=== PATIENT | female | born 1965 | race Caucasian/White ===

== ENCOUNTER 2022-10-16 11:10 | Emergency (ER) | payer BC, SELFPAY ==
--- NOTE | ~2022-10-16 | CT_ITS ---
EXAMINATION: CT abdomen pelvis w con DATE: 10/16/2022 16:53 INDICATION: Right lower quadrant abdominal pain TECHNIQUE: Computed tomography (CT) of the abdomen and pelvis was performed with 100 mL Omnipaque-350 intravenous contrast. Automated exposure control and iterative reconstruction technique were employe d. The dose-length product was 308.56 mGy-cm. COMPARISON: None FINDINGS: Mild dependent atelectasis in bilateral lower lobes. Heart size is normal. No pericardial or pleural effusion. Bilateral breast implants. Liver, gallbladder, spleen, pancreas, right adrenal gland and bi lateral kidneys are normal. 1.3 cm left adrenal nodule which is only increased slightly in size over the six-year interval which could be most consistent with an adenoma. Bladder is normal. The uterus a nd left adnexa are not identified and have likely been surgically resected. Right ovary is unremarkab le. There is mild colonic diverticulosis with a sigmoid and descending colon predominance but without adjacent inflammatory change to suggest diverticulitis. No bowel obstruction. The appendix is not vi sualized. No pericecal inflammatory change to suggest acute appendicitis. No free intraperitoneal gas or fluid. No pathologically enlarged abdominal or pelvic lymphadenopathy. Moderate lumbar spondylosi s. IMPRESSION: 1. No acute intra-abdominal/pelvic process. Reviewed, dictated and finalized at location B. CONDITIONER
[2022-10-16 11:30] VITALS: BP 117/77; PULSE 93; RESP 16; TEMP 36.9; O2SAT 96
[2022-10-16 11:45] LABS: Basophils Percent Auto 0.4 % (0.2-1.2); Eosinophils Absolute Auto 0.2 K/mm3 (0-0.3); Eosinophils Percent Auto 2.1 % (0-4.4); Hematocrit 39.2 % (37.0-47.0); Hemoglobin 13.1 g/dL (12.0-15.0); Immature Granulocyte Absolute 0.02 K/mm3 (0.00-0.031); Immature Granulocyte Percent A 0.3 % (0-0.5); Lymphocytes Absolute Auto 2.38 K/mm3 (0.9-3.2); Lymphocytes Percent Auto 32.8 % (18.3-44.2); Mean Corpuscular HGB Conc 33.4 g/dl (32-36); Mean Corpuscular Hemoglobin 31.9 pg (26-34); Mean Corpuscular Volume 95.4 fl (80-100); Mean Platelet Volume 9.6 fl (7.4-10.4); Monocytes Absolute Auto 0.3 K/mm3 (0.1-0.6); Monocytes Percent Auto 3.6 % (2.6-8.5); Neutrophils Absolute Auto 4.4 K/mm3 (1.3-6.7); Neutrophils Percent Auto 60.8 % (45.5-73.1); Platelet Count Result 246 k/mm3 (150-375); Red Blood Count 4.11 M/mm3 (4.2-5.4); White Blood Count 7.3 K/mm3 (4.5-10.0)
[2022-10-16 11:58] LABS: Alanine Aminotransferase 20 U/L (6-35); Albumin Level 4.6 g/dL (3.5-5.1); Alkaline Phosphatase 90 U/L (38-126); Anion Gap 5 mmol/L (8-16); Aspartate Amino Transferase 22 U/L (14-36); Bilirubin,Total 0.6 mg/dL (0.2-1.3); Blood Urea Nitrogen 15 mg/dL (7-17); Calcium 9.5 mg/dL (8.4-10.2); Carbon Dioxide 29 mmol/L (22-30); Chloride 102 mmol/L (98-107); Estimated CRCL calculation 76 ml/min; Estimated Glomerular Filt Rate > 60; Glucose 90 mg/dL (65-110); Lipase 44 U/L (23-300); Potassium 3.9 mmol/L (3.4-5.0); Sodium 136 mmol/L (137-145)
[2022-10-16 12:03] LABS: Appearance Urine Clear (Clear); Bilirubin Urine Negative (Negative); Blood Urine Negative (Negative); Color Urine Yellow (Yellow); Glucose Urine UA Negative (Negative); Ketones Urine Negative (Negative); Leukocyte Esterase Ur Negative LEU/UL (Negative); Nitrate Urine Negative (Negative); Protein Urine Negative (Negative); Urobilinogen Urine 0.2 mg/dL (<2.0)
[2022-10-16 12:05] LABS: Add Urine Microscopic? NO
[2022-10-16 14:52] VITALS: O2SAT 100
--- NOTE | 2022-10-16 17:20 | ED.GENADULT ---
HPI - General Adult General Chief complaint: Back Pain/Injury Stated complaint: flank pain Time Seen by Provider: 10/16/22 14:50 History of Present Illness HPI narrative: Patient is a 56-year-old female who presents ER with low back pain and abdominal pain. Low back pain is achy and radiates across both sides of her low back. No trauma or injury or fall. No lower extremity numbness or tingling. Reports last week she did have some diarrhea but is since abated. No blood in her stool. Denies urinary frequency urgency or. No history of kidney stones. Related Data Allergies Allergy/AdvReac Type Severity Reaction Status Date / Time morphine Allergy Mild Itching Verified 10/16/22 14:56 Review of Systems Review of Systems: All systems reviewed & are unremarkable except as noted in HPI and below Constitutional: Constitutional: Denies chills, Denies fatigue and Denies fever(s) ENT: Denies nasal congestion and Denies sore throat Cardiovascular: Cardiovascular: Denies chest pain, Denies rapid heart rate and Denies radiating jaw, neck or arm pain Respiratory: Respiratory: Denies cough and Denies dyspnea Gastrointestinal: Gastrointestinal: Reports abdominal pain, Reports diarrhea, Denies nausea and Denies vomiting Musculoskeletal: Musculoskeletal: Reports back pain Neurologic: Denies focal weakness and Denies numbness PMFSH Past Medical History Medical History (Updated 10/16/22 @ 17:33 by Jah Peña MD) Healthy female adult Surgical History Surgical History (Updated 10/16/22 @ 17:33 by Jah Peña MD) History of appendectomy History of section History of laparoscopy Social History Social History (Updated 10/16/22 @ 17:33 by Jah Peña MD) Smoking status: Current every day smoker Exam Narrative: GENERAL: Well-appearing, well-nourished, and in no acute distress. HEAD: Normocephalic, atraumatic. EYES: PERRL and EOMI. ENT: Mucous membranes moist. CHEST: Clear to auscultation. No respiratory distress. HEART: Regular rate and rhythm. Normal peripheral pulses. ABDOMEN: Soft, tender palpation right lower quadrant with guarding, nondistended, normal active bowel sounds. Back: No reproducible midline impression muscular tenderness. No visual evidence of trauma. EXTREMITIES: Normal range of motion. No edema. SKIN: Warm, dry, no rash. NEURO: Alert and oriented x3. PSYCH: Normal mood and affect. Course Course Emergency Course: Patient resting comfortably. Informed of results. No evidence of acute intra-abdominal process. Repeat abdominal exam without any point tenderness. Back pain low and not reproducible. No neurologic deficit. Recommend anti-inflammatories and antiemetics. Follow-up with PCP. Vital Signs Vital signs: Vital Signs Temperature 98.5 F 10/16/22 11:30 Pulse Rate 93 10/16/22 11:30 Respiratory Rate 16 10/16/22 11:30 Blood Pressure 117/77 10/16/22 11:30 Pulse Oximetry 96 10/16/22 11:30 Oxygen Delivery Room Air 10/16/22 11:30 Temperature 98.5 F 10/16/22 11:30 Pulse Rate 93 10/16/22 11:30 Respiratory Rate 16 10/16/22 11:30 Blood Pressure 117/77 10/16/22 11:30 Pulse Oximetry 100 10/16/22 14:52 Oxygen Delivery Room Air 10/16/22 14:52 Medical Decision Making Vital Signs Vital Signs: Vital Signs Temperature 98.5 F 10/16/22 11:30 Pulse Rate 93 10/16/22 11:30 Respiratory Rate 16 10/16/22 11:30 Blood Pressure 117/77 10/16/22 11:30 Pulse Oximetry 96 10/16/22 11:30 Oxygen Delivery Room Air 10/16/22 11:30 Temperature 98.5 F 10/16/22 11:30 Pulse Rate 93 10/16/22 11:30 Respiratory Rate 16 10/16/22 11:30 Blood Pressure 117/77 10/16/22 11:30 Pulse Oximetry 100 10/16/22 14:52 Oxygen Delivery Room Air 10/16/22 14:52 Lab Data 10/16/22 11:37 10/16/22 11:37 Labs: Lab Results 10/16/22 10/16/22 10/16/22 Range/Units 11:37 11:37 11:46 WBC
[2022-10-16] MEDS: fentaNYL CITRATE INJ (*CRX) 100 MCG/2 ML VIAL 50 MCG IV PUSH (17:43)
== END 2022-10-16 17:00 | disposition home or self-care (01) ==
PROVIDERS: Emergency Provider Emergency Medicine; PCP Physician Assistant
DX: M54.50 Low back pain, unspecified (principal); R10.31 Right lower quadrant pain; F17.200 Nicotine dependence, unspecified, uncomplicated
CPT/HCPCS: 36415; 74177; 80053; 81003; 81025; 83690; 85025; 96374; 99284; J3010; Q9967

== ENCOUNTER 2022-11-16 15:45 | Outpatient (CLI) | payer BC, SELFPAY ==
--- NOTE | ~2022-11-16 | MM_ITS ---
EXAMINATION: MM scrn hawk implant BI w john HISTORY: Screening mammogram TECHNIQUE: Craniocaudal and mediolateral oblique 3-D tomosynthesis images with implant displacement a nd synthetic 2-D images were generated. Craniocaudal and mediolateral oblique views of the breasts wi thout implant displacement were obtained using full field digital mammography. CAD analysis was submi tted and interpreted. COMPARISON: 06/24/2014 bilateral implant screening mammogram BREAST PARENCHYMAL COMPOSITION: The breasts are extremely dense, which lowers the sensitivity of mamm ography. FINDINGS: Status post bilateral augmentation mammoplasty. There is no evidence of suspicious mass, ca lcification, or architectural distortion to suggest malignancy in either breast. There has been no frank spicious interval change. IMPRESSION: 1. No mammographic evidence of malignancy. 2. Recommend routine screening mammography in one year. BI-RADS Category 1: Negative Reviewed, dictated and finalized at location A. 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
== END 2022-11-16 15:46 | disposition home or self-care (01) ==
PROVIDERS: PCP Physician Assistant; Visit Provider Physician Assistant
DX: Z12.31 Encounter for screening mammogram for malignant neoplasm of breast (principal)
CPT/HCPCS: 77063; 77067

== ENCOUNTER 2022-12-08 01:22 | Day surgery (SDC) | payer BC, SELFPAY ==
[2022-12-05 15:00] VITALS: BMI 24.3
[2022-12-08 09:13] VITALS: BP 107/80; PULSE 86; RESP 18; TEMP 36.7; O2SAT 96
[2022-12-08] MEDS: LACTATED RINGERS 1,000 ML 150 ML IV CONT (09:15)
--- NOTE | 2022-12-08 09:17 | WPDANESEPPF ---
Anes - Initial Pre Proc Eval Procedure: Operation Date: 12/08/22 10:15 Proposed Procedures p Screening Colonoscopy - David Connelly MD Date/Time: 12/08/22 09:17 Surgeon: David Connelly MD Pre Op Diagnosis: neoplasm screening Patient Data Age: 56 Gender: F Height: 1.7 m Weight: 68.2 kg Last Vital Signs Temp 36.7 C 12/08/22 09:13 Pulse 86 12/08/22 09:13 Resp 18 12/08/22 09:13 BP 107/80 12/08/22 09:13 Pulse Ox 96 12/08/22 09:13 O2 Del Method Room Air 12/08/22 09:13 Allergies Allergy/AdvReac Type Severity Reaction Status Date / Time morphine Allergy Mild Itching Verified 12/08/22 09:12 iohexol Allergy Rash Verified 12/08/22 09:12 [From contrast - CT, X-RAY] Home Medications Medication Instructions Recorded Confirmed Type magnesium L-threonate 3 cap PO DAILY 12/05/22 12/08/22 History magnesium citrate 300 mg PO DAILY 12/05/22 12/08/22 History Patient hx anesthesia problems: none Family hx anesthesia problems: none Results Review: All pre-operative results and documents have been reviewed as part of the pre-operative evaluation. [facility] Past Medical History Medical History Healthy female adult Surgical History Surgical History History of appendectomy History of section History of laparoscopy Social History Social History Smoking packs per day: 1 Smoking cigarettes per day: 20.0 Years smoked: 35 Smoking pack-years: 35.00 Smoking status: Former smoker Tobacco type: e-cigarettes/vaping Additional smoking assessment comments: CURRENTLY VAPES Alcohol intake: current Substance use: never Substance use type: does not use Living arrangements: with family Spiritual care concerns: No Anes - Eval Final PreProcedure Day of Procedure 12/08/22 09:17 Patient weight: normal Heart: regular rate and rhythm Lungs: clear to auscultation Airway: Mallampati scale class II Neurological: alert and oriented Last oral intake: >/= 8 hours ASA classification: II Emergent: no Anesthetic plan: proceed Anesthesia type and monitoring: general GIVS and standard monitoring Results Review: All pre-operative results and documents have been reviewed as part of the pre-operative evaluation. Informed Consent: The patient's anesthetic plan and its attendant risks and benefits were discussed with the patient/family/POA. Questions were solicited and answers provided to the satisfaction of the patient/family/POA.
--- NOTE | 2022-12-08 09:36 | PM.HPGS ---
History of Present Illness History of Present Illness Consent: Risks, benefits, and alternatives have been discussed and questions answered. Patient agrees to proceed with procedure. Chief complaint: neoplasm screening Narrative: Aiyana Solomon is a 56 year old female here for first screening colonoscopy Review of Systems Constitutional: Constitutional: Denies headache(s) and Denies weakness Eyes: Eyes: Denies blurry vision ENT: Reports Normal hearing present, Denies headache(s) and Denies neck pain Cardiovascular: Cardiovascular: Denies chest pain and Denies dyspnea Respiratory: Respiratory: Denies dyspnea Gastrointestinal: Gastrointestinal: Reports no additional gastrointestinal complaints Genitourinary: Genitourinary: Denies dysuria Musculoskeletal: Musculoskeletal: Denies neck pain Integumentary/Breasts: Skin/Breast: Denies dry skin Neurologic: Reports Normal hearing present, Denies headache(s) and Denies weakness Psychiatric: Psychiatric: Denies anxiety Endocrine: Endocrine: Denies change in body appearance Hematologic/Lymphatic: Hematologic/Lymphatic: Denies easy bleeding Allergic/Immunologic: Allergic/Immunologic: Denies urticaria PMF Past Medical History Medical History (Updated 12/08/22 @ 09:37 by David Connelly MD) Colon cancer screening Healthy female adult Surgical History Surgical History History of appendectomy History of section History of laparoscopy Social History Social History Smoking packs per day: 1 Smoking cigarettes per day: 20.0 Years smoked: 35 Smoking pack-years: 35.00 Smoking status: Former smoker Tobacco type: e-cigarettes/vaping Additional smoking assessment comments: CURRENTLY VAPES Alcohol intake: current Substance use: never Substance use type: does not use Living arrangements: with family Spiritual care concerns: No Meds Home Medications and Allergies Home Medications Medication Instructions Recorded Confirmed Type magnesium L-threonate 3 cap PO DAILY 12/05/22 12/08/22 History magnesium citrate 300 mg PO DAILY 12/05/22 12/08/22 History Allergies Allergy/AdvReac Type Severity Reaction Status Date / Time morphine Allergy Mild Itching Verified 12/08/22 09:12 iohexol Allergy Rash Verified 12/08/22 09:12 [From contrast - CT, X-RAY] Vital Signs Vital Signs - 24 hr 12/08/22 09:13 Temperature 98.1 F Pulse Rate 86 Respiratory Rate 18 Blood Pressure 107/80 Pulse Oximetry 96 Oxygen Delivery Room Air Exam Const: General: comfortable and no acute distress HENMT: Face/Nose/Sinus: Normal nares present Eyes: General: appearance normal, both eyes and all related structures Neck: Neck: no JVD Resp: Auscultation: clear to auscultation bilaterally Cardio: Rate: regular rate Rhythm: regular rhythm GI: Inspection: non-distended GI Palp: Yes Soft to palpation Skin: General skin exam: normal color Neuro: General: gait normal Speech: normal speech Extrem: General: normal to inspection Psych: Mental Status: mental status grossly normal Assessment and Plan Assessment and plan (1) Colon cancer screening: Code(s): Z12.11 - Encounter for screening for malignant neoplasm of colon Status: Acute Assessment and Plan: colonoscopy
[2022-12-08 10:02] VITALS: BP 116/77; PULSE 77; RESP 23; O2SAT 98
[2022-12-08 10:12] VITALS: BP 113/75; PULSE 64; RESP 17; O2SAT 97
[2022-12-08 10:22] VITALS: BP 109/72; PULSE 63; RESP 18; O2SAT 98
== END 2022-12-08 10:24 | disposition home or self-care (01) ==
PROVIDERS: PCP Physician Assistant; Visit Provider Internal Medicine Gastroenterology
PROC: 0DJD8ZZ Inspection of Lower Intestinal Tract, Via Natural or Artificial Opening Endoscopic (ICD-10-PCS; CPT 45378; principal; 2022-12-08 10:15)
DX: Z12.11 Encounter for screening for malignant neoplasm of colon (principal); D12.0 Benign neoplasm of cecum; K62.1 Rectal polyp; K57.30 Diverticulosis of large intestine without perforation or abscess without bleeding; K64.8 Other hemorrhoids; F17.290 Nicotine dependence, other tobacco product, uncomplicated
CPT/HCPCS: 45385; 88305; J2704; J7120

== ENCOUNTER 2023-03-06 18:42 | Emergency (ER) | payer BC, SELFPAY ==
[2023-03-06 18:52] VITALS: BP 104/73; PULSE 93; RESP 18; TEMP 36.1; O2SAT 99
[2023-03-06 19:45] LABS: Alanine Aminotransferase 28 U/L (6-35); Albumin Level 5.4 g/dL (3.5-5.1); Alkaline Phosphatase 124 U/L (38-126); Anion Gap 12 mmol/L (8-16); Aspartate Amino Transferase 32 U/L (14-36); Bilirubin,Total 0.7 mg/dL (0.2-1.3); Blood Urea Nitrogen 16 mg/dL (7-17); Calcium 10.4 mg/dL (8.4-10.2); Carbon Dioxide 25 mmol/L (22-30); Chloride 102 mmol/L (98-107); Estimated CRCL calculation 83 ml/min; Estimated Glomerular Filt Rate > 60; Glucose 127 mg/dL (65-110); Lipase 68 U/L (23-300); Potassium 3.4 mmol/L (3.4-5.0); Sodium 139 mmol/L (137-145)
[2023-03-06 21:23] LABS: Basophils Percent Auto 0.4 % (0.2-1.2); Eosinophils Absolute Auto 0.1 K/mm3 (0-0.3); Eosinophils Percent Auto 0.6 % (0-4.4); Hematocrit 40.2 % (37.0-47.0); Hemoglobin 13.7 g/dL (12.0-15.0); Immature Granulocyte Absolute 0.02 K/mm3 (0.00-0.031); Immature Granulocyte Percent A 0.2 % (0-0.5); Lymphocytes Absolute Auto 0.33 K/mm3 (0.9-3.2); Lymphocytes Percent Auto 3.7 % (18.3-44.2); Mean Corpuscular HGB Conc 34.1 g/dl (32-36); Mean Corpuscular Hemoglobin 31.4 pg (26-34); Mean Platelet Volume 9.9 fl (7.4-10.4); Monocytes Absolute Auto 0.5 K/mm3 (0.1-0.6); Monocytes Percent Auto 5.9 % (2.6-8.5); Neutrophils Percent Auto 89.2 % (45.5-73.1); Platelet Count Result 210 k/mm3 (150-375); Red Blood Count 4.37 M/mm3 (4.2-5.4); Red Cell Distribution Width 13.2 % (11.5-14.5)
--- NOTE | 2023-03-06 21:27 | PC.NURSE ---
Pt c/o diffuse abdominal pain, nausea, vomiting, diarrhea, neck pain, and headache after she took her first dose of amoxicillin for a sinus infection tonight. EMS administered 4mg zofran en route.
[2023-03-06 21:34] LABS: Appearance Urine Cloudy (Clear); Bacteria Urine None Seen /hpf; Bilirubin Urine 2+ (Negative); Blood Urine Negative (Negative); Color Urine Dark Yellow (Yellow); Glucose Urine UA Negative (Negative); Ketones Urine 2+ mg/dL (Negative); Leukocyte Esterase Ur Trace LEU/UL (Negative); Mucus Urine Present /lpf; Need Manual Microscopic Reviewed; Nitrate Urine Negative (Negative); Protein Urine 2+ mg/dL (Negative); RBC Urine 0-2 /hpf (0-2); Specific Grav Ur 1.026 (1.001-1.035); Squamous Epithelial Cell Urine Occasional /hpf (Few); WBC Urine 0-5 /hpf; pH Urine 5.5 (5.0-9.0)
[2023-03-06 21:35] LABS: Add Urine Microscopic? YES
[2023-03-06] MEDS: SODIUM CHLORIDE 0.9% IV 1,000 ML 999 ML IV CONT (21:55)
[2023-03-06] MEDS: PROCHLORPERAZINE EDISYLATE 10 MG/2 ML VIAL IV PUSH (21:56)
[2023-03-06 22:48] VITALS: BP 113/76; PULSE 100; RESP 20; O2SAT 96
--- NOTE | 2023-03-06 23:10 | ED.GENADULT ---
HPI - General Adult General Chief complaint: Nausea/Vomiting/Diarrhea Stated complaint: N/V after taking Amoxil Time Seen by Provider: 03/06/23 21:06 History of Present Illness HPI narrative: Patient is a 57-year-old female who presents emergency department chief complaint of nausea vomiting patient reports that she started Augmentin and reports that she started having nausea and vomiting was able to keep p.o. fluids down. Related Data Home Medications Medication Instructions Recorded Confirmed magnesium L-threonate 3 cap PO DAILY 12/05/22 12/08/22 magnesium citrate 300 mg PO DAILY 12/05/22 12/08/22 Allergies Allergy/AdvReac Type Severity Reaction Status Date / Time morphine Allergy Mild Itching Verified 12/08/22 09:12 iohexol Allergy Rash Verified 12/08/22 09:12 [From contrast - CT, X-RAY] Review of Systems Review of Systems: A 10 system review of systems was completed on the patient and is negative except for what is stated in the HPI. Nursing and ancillary documentation was reviewed. [facility] Past Medical History Medical History Colon cancer screening Healthy female adult Surgical History Surgical History History of appendectomy History of section History of laparoscopy Social History Social History Smoking packs per day: 1 Smoking cigarettes per day: 20.0 Years smoked: 35 Smoking pack-years: 35.00 Smoking status: Former smoker Tobacco type: e-cigarettes/vaping Additional smoking assessment comments: CURRENTLY VAPES Alcohol intake: current Substance use: never Substance use type: does not use Living arrangements: with family Spiritual care concerns: No Exam Narrative: GENERAL: Well-appearing, well-nourished, and in no acute distress. HEAD: Normocephalic, atraumatic. EYES: PERRLA and EOMI. ENT: Nares clear, no rhinorrhea or epistaxis. Mucous membranes moist. NECK: Supple. CHEST: Clear to auscultation. No respiratory distress. HEART: Regular rate and rhythm. No murmur heard. Normal peripheral pulses. ABDOMEN: Soft, nontender, nondistended, normal active bowel sounds. EXTREMITIES: Normal range of motion. No edema. SKIN: Warm, dry, no rash. NEURO: No focal deficits. Alert and oriented x3. PSYCH: Normal mood and affect. Course Vital Signs Vital signs: Vital Signs Temperature 36.1 C L 03/06/23 18:52 Pulse Rate 93 03/06/23 18:52 Respiratory Rate 18 03/06/23 18:52 Blood Pressure 104/73 03/06/23 18:52 Pulse Oximetry 99 03/06/23 18:52 Oxygen Delivery Room Air 03/06/23 18:52 Temperature 36.1 C L 03/06/23 18:52 Pulse Rate 100 03/06/23 22:48 Respiratory Rate 20 03/06/23 22:48 Blood Pressure 113/76 03/06/23 22:48 Pulse Oximetry 96 03/06/23 22:48 Oxygen Delivery Room Air 03/06/23 18:52 Medical Decision Making MDM Narrative Medical decision making narrative: Differential diagnosis includes dehydration, medication side effect, Laboratory studies are within normal limits CBC was normal electrolytes showed a creatinine of 0.6 liver enzymes within normal limits lipase was normal at 68 urinalysis showed 2+ ketones and trace leukocyte esterase. Patient was hydrated and given antiemetics in the emergency department Was likely secondary to an sensitivity to Augmentin plan will most likely to change the patient's antibiotics Vital Signs Vital Signs: Vital Signs Temperature 36.1 C L 03/06/23 18:52 Pulse Rate 93 03/06/23 18:52 Respiratory Rate 18 03/06/23 18:52 Blood Pressure 104/73 03/06/23 18:52 Pulse Oximetry 99 03/06/23 18:52 Oxygen Delivery Room Air 03/06/23 18:52 Temperature 36.1 C L 03/06/23 18:52 Pulse Rate 100 03/06/23 22:48 Respiratory Rate 20 03/06/23 22:48 Blood Pressure 113/7
== END 2023-03-07 01:25 | disposition home or self-care (01) ==
PROVIDERS: Emergency Medicine; Emergency Provider Emergency Medicine; PCP Physician Assistant
DX: R11.2 Nausea with vomiting, unspecified (principal); J32.9 Chronic sinusitis, unspecified; F17.290 Nicotine dependence, other tobacco product, uncomplicated
CPT/HCPCS: 36415; 80053; 81001; 83690; 85025; 96361; 96374; 99284; J0780; J7030

== ENCOUNTER 2024-01-10 08:14 | Emergency (ER) | payer BC, SELFPAY ==
[2024-01-10 08:39] VITALS: BP 96/76; PULSE 82; RESP 16; TEMP 37.1; O2SAT 99
--- NOTE | 2024-01-10 08:40 | ED.EYEPROB ---
HPI - Eye Problem General Chief complaint: Eye Problems Stated complaint: Swollen Eyes Source: patient, RN notes reviewed and old records reviewed Mode of arrival: ambulatory Limitations: no limitations History of Present Illness HPI Narrative: 58-year-old female presents to [facility] with complaints bilateral eye redness, swelling, drainage, a.m. adding that started yesterday. Patient states got I Last extensions placed 2 days ago denies began turning red woke up today with eyes matted shut. Related Data Home Medications Medication Instructions Recorded Confirmed magnesium L-threonate 3 cap PO DAILY 12/05/22 12/08/22 magnesium citrate 300 mg PO DAILY 12/05/22 12/08/22 Allergies Allergy/AdvReac Type Severity Reaction Status Date / Time morphine Allergy Mild Itching Verified 12/08/22 09:12 iohexol Allergy Rash Verified 12/08/22 09:12 [From contrast - CT, X-RAY] Review of Systems Constitutional: Constitutional: Reports no additional constitutional complaints, Denies body ache(s), Denies chills, Denies fatigue, Denies fever(s) and Denies headache(s) Eyes: Eyes: Reports as per HPI, Reports no additional eye complaints, Denies blurry vision, Reports eye discharge, Reports irritation and Reports other ( Bilateral eye swelling) ENT: Reports system reviewed and no additional complaints, except as documented, Denies vertigo, Denies dizziness, Denies ear discharge, Denies otalgia, Denies facial pain, Denies headache(s), Denies nasal congestion, Denies nasal discharge, Denies sinus pain, Denies sinus pressure and Denies sore throat Cardiovascular: Cardiovascular: Reports no additional cardiovascular complaints, Denies chest pain, Denies chest pain at rest, Denies rapid heart rate and Denies dyspnea Respiratory: Respiratory: Reports no additional respiratory complaints, Denies chest congestion, Denies cough, Denies pain on inspiration, Denies pain with cough and Denies dyspnea Gastrointestinal: Gastrointestinal: Denies abdominal pain, Denies diarrhea, Denies nausea and Denies vomiting Integumentary/Breasts: Skin/Breast: Denies rash Neurologic: Reports system reviewed and no additional complaints, except as documented, Denies vertigo, Denies dizziness and Denies headache(s) Endocrine: Endocrine: Denies fatigue PMFSH Past Medical History Medical History Colon cancer screening Healthy female adult Surgical History Surgical History History of appendectomy History of section History of laparoscopy Social History Social History Smoking packs per day: 1 Smoking cigarettes per day: 20.0 Years smoked: 35 Smoking pack-years: 35.00 Smoking status: Former smoker Tobacco type: e-cigarettes/vaping Additional smoking assessment comments: CURRENTLY VAPES Alcohol intake: current Substance use: never Substance use type: does not use Living arrangements: with family Spiritual care concerns: No Comments At the time of my signature, I reviewed and agree with the nursing past medical, surgical, social, and family history. There is no relevant family history pertinent to the patient complaint. Exam Const: General: cooperative, healthy appearing, no acute distress and well nourished Nutritional Appearance: well nourished Orientation/consciousness: patient oriented x3 Limitations: no limitations HENMT: Head: normal to inspection and normocephalic Ears: external ears normal Face/Nose/Sinus: normal facial exam Face and sinus: normal facial exam Mouth: Yes Normal oral and palatal mucosa present, Yes oropharynx normal and Yes moist mucous membranes Eyes: Alignment and Position: alignment normal Eyelids: eyelid abnormality right upper eyelid erythema and swelling and left upper eyelid erythema and swelling Conjunctivae: conjuncti
== END 2024-01-10 08:51 | disposition home or self-care (01) ==
PROVIDERS: Emergency Provider Registered Nurse; PCP Physician Assistant
DX: H10.9 Unspecified conjunctivitis (principal); F17.290 Nicotine dependence, other tobacco product, uncomplicated
CPT/HCPCS: 99213; G0463

== ENCOUNTER 2025-01-01 09:39 | Outpatient (CLI) | payer BC, SELFPAY ==
--- NOTE | ~2025-01-01 | MM_ITS ---
EXAMINATION: MM scrn hawk implant BI w john HISTORY: Screening mammogram TECHNIQUE: Craniocaudal and mediolateral oblique 3-D tomosynthesis images with implant displacement a nd synthetic 2-D images were generated. Craniocaudal and mediolateral oblique views of the breasts wi thout implant displacement were obtained using full field digital mammography. CAD analysis was submi tted and interpreted. COMPARISON: Comparison to multiple prior studies sequentially, with oldest reviewed study dated 09/2013. BREAST PARENCHYMAL COMPOSITION: Dense: The breasts are extremely dense, which lowers the sensitivity of mammography. FINDINGS: There are subglandular breast implants. There is no evidence of suspicious mass, calcificat ion, or architectural distortion to suggest malignancy in either breast. There has been no suspicious interval change. IMPRESSION: 1. No mammographic evidence of malignancy. 2. Recommend routine screening mammography in one year. BI-RADS Category 1: Negative Reviewed, dictated and finalized at location A.
--- OUTSIDE RECORDS SUMMARY | 2025-01-01 10:08 | XMS_ITS | Data Portability ---
Author Organization [facility] Address [address] [place] [address] Care Team Providers Care Certified Peer Specialist Name Role Phone CLAIRE FERNANDEZ Primary Care Provider Unavailab le Assessment Encounter Date Assessment Date Assessment LastModified by Organization Details LastModified Time 04/23/2024 04/23/2024 I think most of this is inflammatory reaction she can use some Benadryl as needed for any itching I will give her some doxycycline 100 b.i.d. x1 week on the outside chance that she has a little bit of bacterial superinfection she will report back in a couple of days if she is not improving. [email or web address] Not available 04/25/2024 23:37:21 Plan of Treatment Reminders Order Date Submit Date Provider Last Modified By Organization Details Last Modified Time Details Appointments None recorded. Lab TSH + free T4, serum 2023 [facility], [address], [place], [address], 5 14:12:00 lipid panel, serum 2023 024 [facility], [address], [place], [address], 5 14:12:05 CMP, serum or plasma 2023 024 [facility], [address], [place], [address], 5 14:12:24 CBC w/ auto diff 2023 024 [facility], [address], [place], [address], 5 14:12:18 HbA1c (hemoglobin A1c), blood 2023 [place] [address] [facility], [address], [place], [address], 5 14:12:13 Referral None recorded. Procedures None recorded. Surgeries None recorded. Imaging MAMMO, screening, digital, bilateral [address] (Mammography) , [address], [place], [address], 5 15:16:41 Medication Orders doxycycline hyclate 100 mg capsule 2023 [facility] [address] [place], [address], 4 13:04:42 Patient TargetsNo targets recorded. Patient InstructionsNo instructions recorded. Reason for Referral None Reported. Results Created Date Observation Date Name Description Value Unit Range Abnormal Flag Note LastModifiedBy Organization Detail LastModifiedTime Result Notes None recorded. Problems Name Problem SNOMED Code Status Onset Date Resolution Date Notes Provider Name and Address Organization Details Recorded Time Bite of insect Active 024 Avi Lopez MA [facility], [place] - [place] 4 13:01:13 Anxiety 43585866 Active 024 BENJAMÍN Willingham Attn: Accounting ,[address] [place], [address] , [place] - [place] 4 15:14:02 Body mass index 20-24 - normal 520173493 Active 024 BENJAMÍN Willingham Attn: Accounting ,[address] [place], [address] , [facility] - [facility] 4 15:14:38 Problem Notes None recorded. Medical Equipment None Reported. Allergies Allergen ID Allergen Name Allergen Category Reaction Reaction Severity Criticality Documentation Date Start Date Code Code System Note Provider Name and Address Organization Details Recorded Time 225598 morphine medicatio n itching moderate low 04/23/2024 7052 RxNorm Not Available Not Available Not Available 726909 latex environme nt,medica tion itching Not available Not available 05/01/2024 42070 91 RxNorm redne ss Not Available Not Available Not Available Medications Name Sig Start Date Stop Date Status Note LastModified by Organization Details LastModified Time amoxicillin 500 mg capsule TAKE FOUR CAPSULES BY MOUTH ONE HOUR BEFORE APPOINTME NT 04/23 completed Not Available Not Available Not Available doxycycline hyclate 100 mg capsule Take 1 capsule twice a day by oral route for 7 days. 05/01 completed Not Available Not Available Not Available ofloxacin 0.3 % eye drops 04/23 completed Not Available Not Available Not Available prednisone 20 mg tablet 04/23 completed Not Available Not Available Not Available ciprofloxac in 500 mg tablet TAKE 1 TABLET BY MOUTH EVERY 12 HOURS FOR URINARY INFECTION 12/26 completed Not Available Not Available Not Available oxycodone-a cetaminophe n 5 mg-325 mg tablet TAKE 1 TABLET BY MOUTH EVERY 4 HOURS NEEDED FOR PAIN 04/23 completed Not Available Not Available Not Available amoxicillin 875 mg tablet Take 1 tablet every 12 hours by oral route. 12/26 completed Not Available Not Available Not Available Vitals Date Recorded Body height Body mass index (BMI) Body weight Heart rate Oxygen saturation Oxygen saturation in Arterial blood by Pulse oximetry Systolic blood pressure Diastolic blood pressure Provider Name and Address Organization Details Last Updated DateTime 4 170.18 cm 22.7 kg/m2 27846.1 g 75 /min 98 % 98 % 104 mm[Hg] 66 mm[Hg] Lorrie Jaimes [place] - [facility] 4 12:49:45 Date Recorded Body height Body mass index (BMI) Body weight Respiratory rate Oxygen saturation Oxygen saturation in Arterial blood by Pulse oximetry Heart rate Systolic blood pressure Diastolic blood pressure Provider Name and Address Organization Details Last Updated DateTime 4 170.18 cm 22.7 kg/m2 33007.0 4 g 20 /min 97 % 97 % 80 /min 116 mm[Hg] 82 mm[Hg] ROSA Owens - [place] 13:07:16 Date Recorded Systolic blood pressure Diastolic blood pressure Provider Name and Address Organization Details Last Updated DateTime 05/01/2024 130 mm[Hg] 80 mm[Hg] BENJAMÍN Willingham Attn: Accounting,[address] [facility], [place], [address], [place] - [place] 05/01/2024 13:39:42 Social History Question Answer Notes LastModified by Organizat ion Details LastModified Time Tobacco Smoking Status Former Smoker Lorrie Jaimes [place] null, [place] [facility] 04/23/2024 12:45:10 Do You Have An Advance Directive? No Information not available 04/23/2024 What Is Your Level Of Alcohol Consumption? Occasional Information not available 04/23/2024 Are You Blind Or Do You Have Difficulty Seeing? No Information not available 04/23/2024 What Is Your Level Of Caffeine Consumption? Moderate Information not available 04/23/2024 Are You Deaf Or Do You Have Serious Difficulty Hearing? No Information not available 04/23/2024 Do You Or Have You Ever Used E-cigarettes Or Vape? Current User Of Electronic Cigarettes Information not available 04/23/2024 What Was The Date Of Your Most Recent Tobacco Screening? 05/01/2024 [email or web address] Information not available 05/01/2024 What Is Your Current Pack Years? [email or web address] ars Information not available 04/23/2024 What Is Your Relationship Status? Information not available 04/23/2024 Do You Use Your Seat Belt Or Car Seat Routinely? Yes Information not available 04/23/2024 Do You Have Smoke And Carbon Monoxide Detectors In Your Home? Yes Information not available 04/23/2024 At What Age Did You Start Smoking Tobacco? 31 Information not available 04/23/2024 Do You Or Have You Ever Used Smokeless Tobacco? Former Smokeless Tobacco User Information not available 04/23/2024 How Much Tobacco Do You Smoke? 1 PPD Information not available 04/23/2024 Do You Feel Stressed (tense, Restless, Nervous, Or Anxious, Or Unable To Sleep At Night)? [id number] Information not available 04/23/2024 Do You Use Any Illicit Or Recreational Drugs? No Information not available 04/23/2024 Has Tobacco Cessation Counseling Been Provided? No Information not available 04/23/2024 Do You Or Have You Ever Used Any Other Forms Of Tobacco Or Nicotine? Yes Information not available 04/23/2024 Sex: Female Functional Status Question Answer Note LastModified by Organization D etails LastModified Time Are you able to care for yourself? Yes Information n ot available 04/23/2024 Mental Status None recorded. Family History Nothing Reported. Medical History Condition Response Coronary Artery Disease N Other N High Blood Pressure N Atrial Fibrillation N Kidney or Bladder Problems N Thyroid Problems N GI Problems N Depression N COPD N Blood Clots N Have you had a mammogram in the last yea r? N Skin Problems N Anemia N Heart Attack ([place]) N Anxiety Disorder N Diabetes N Muscle, Joint, or Bone Problems N Seizures/Epilepsy N Have you had a colonoscopy in the last 1 0 years? N Acid Reflux (GERD) N Cancer N Stroke N Asthma N Allergies Y Have you had a PSA blood test in the las t year? N High Cholesterol N Hepatitis N Liver Disease N Headaches N Heart Failure N Osteoporosis N Gynecological History Statement/Question Response Menses Monthly N Current Control Method Other Obstetrics History GPAL:G 0 P 0 0 0 0 Immunizations Vaccine Type Date Status Note Provider Nam e and Address Organization Details Recorded Time COVID-19 vaccine, vector-nr, rS-Ad26, PF, 0.5 mL 12/31/2020 completed ROSA Rivas [facility] 04/23/2024 12:44:12 Past Encounters Encounter ID Performer Location Encounter Start Date Encounter Closed Date Diagnosis/Indication Diagnosis SNOMED-CT Code Diagnosis ICD10 Code Diagnosis Note [id number] Amos Escobar MD [facility] (Adult Med) [address] [place] [address] 04/23/2024 12:34:47 04/23/2024 13:39:20 Bite of insect 560651625 W57.XXXA [id number] BENJAMÍN Willingham [facility] [address] [place] [address] 05/01/2024 12:25:03 05/01/2024 13:50:39 Adult health examination 386965653 Z00.00 Annual wellness exam complete Screening mammography 24 000151 Z12.31 Annual mammogram ordered Cholesterol screening 27 9062913 Z13.220 Routine fasting lipids are due Diabetes m ellitus screening 450079374 Z13.1 Annual diabetes screening due Long-term drug therapy 814788550 Z79.899 Routine CBC and CMP due Anxiety 24673043 F41.9 Currently stable at this time and really situationa l in nature. Thyroid di sorder screening 872340097 Z13.29 Routine thyroid labs ordered Body mass index 20-24 - normal 588440723 Z68.22 BMI is 22.7 Health Concerns Section Related Observation LastModified by Organization Detai ls LastModified Time None Recorded Concern Status LastModified by Organization Details LastModified Time None Recorded Advance Directives Directive N: Payers Encounter Date Sequence Insurance Name Policy Number Policy Mckeon Covered Member ID Mckeon Member ID Guarantor Name 04/23/2024 1 [place] [id number] Kirill Solomon [id number] Aiyana Solomon 05/01/2024 1 [place] [id number] Kirill Solomon [id number] Aiyana Neha Notes Date Note Type Note Provider Name and Address Organization Details Recorded Time 04/23/2024 text/html bit by a spider right side of waist a little bit tender now with large area of erythema no fever or chills but she is concerned that it might be infected Amos Escobar MD Attn: Accounting,[address] [place], [address], [facility] 04/25/2024 23:37:39 05/01/2024 text/html Patient is here for annual wellness exam. 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 BENJAMÍN Willingham Attn: Accounting,[address] [place], [address], [facility] - [facility] 05/24/2024 15:15:13 OBGyn Episode No OBEpisode recorded.
--- OUTSIDE RECORDS SUMMARY | 2025-01-01 10:08 | XMS_ITS | Clinical Summary ---
Author Organization [facility] Health Address [address] [place] [address] Care Team Providers Care Assistant Winemaker Name Role Phone Unavailable Primary Care Provider Unavailabl e Source Comments [facility],non-owned Affiliates and Associated Physician Practices is amultiple site organization consisting of ambulatory clinics and hospital sitesin [place], [place], [place] and [place]. This disclosure is being madepursuant to the Care Everywhere program and may not contain all information available regarding this patient. Last updated 18.[facility] Allergies No known active allergies Social History Tobacco Use Types Packs/Day Years Used Date Smoking Tobacco: Never Assessed Sex and Gender Information Value Date Recorded Sex Assigned at Not on file Gender Identity Not on file Sexual Orientation Not on file Plan of Treatment Health Maintenance Due Date Last Done Comments COLOGUARD (AGES 45-75) - COL ON CA SCREENING 1966 COLON MONITORING 1966 COLONOSCOPY - COLON CA SCREENING 1966 CT COLONOGRAPHY - COLON CA SCREENING 1966 Colorectal Cancer Screening 1966 FIT - COLON CA SCREENING 1966 FLEX SIG - COLON CA SCREENING 1966 LIPID TESTING 1966 MAMMOGRAM 1966 PAP SMEAR 1966 HIV SCREENING 1981 HEPATITIS C SCREENING 12/08/1984 DTAP/TDAP/TD VACCINES (1 - Tdap) 1985 HEPATITIS B VACCINE (1 of 3 - 19+ 3-dose series) 1985 PNEUMOCOCCAL VACCINE 50+ (1 of 1 - PCV) 2016 ZOSTER VACCINE (1 of 2) 2016 COVID-19 VACCINE (1 - 2023-2 5 season) 2024 DEPRESSION SCREENING 09/24/2024 INFLUENZA VACCINE (Season Ended) 2025 HIB VACCINE Aged Out No longer eligi ble based on patient's age to complete this topic HPV VACCINE Aged Out No longer eligi ble based on patient's age to complete this topic MENINGOCOCCAL (Group B) VACC INE SHARED DECISION-MAKING Aged Out No longer eligibl e based on patient's age to complete this topic MENINGOCOCCAL GROUPS A/C/Y/W VACCINE Aged Out No longer eligible b ased on patient's age to complete this topic PNEUMOCOCCAL VACCINE Aged Out No long er eligible based on patient's age to complete this topic
--- OUTSIDE RECORDS SUMMARY | 2025-01-01 10:08 | XMS_ITS | CONTINUITY OF CARE DOCUMENT ---
Author Name gene mills Address Unknown Organization [facility] Address [address] [place] [address] Phone [phone] Care Team Providers Care Pouncing Machine Operator Name Role Phone Tesfaye HOANG, Carey Unavailable [phone] CLAIRE FRIEND Unavailable CLAIRE FRIEND Unavailable PROBLEMS Condition Status Date Provider Notes Hyperlipidemia active Moon Joseph RN Dizziness active Ginna Charles Palpitations active Ginna Charles Chest pain - 30% D1, diffuse distal LAD, nl LV fcn active Carey Carlin MD Family History of CVA or Stroke: completed - Lisa Carlin MD Family History of CVA or Stroke: completed - Lisa Carlin MD Family History of CVA or Stroke: completed - Lisa Carlin MD Tobacco abuse active Carey Carlin MD Anxiety active Carey Carlin MD ENCOUNTERS Date Type Provider Location Encounter Diag nosis - In-person encounter Office Visit Carey Carlin MD [facility] Chest pain - 30% D1, diffuse distal LAD, nl LV fcnFamily History of CVA or Stroke:Family History of CVA or Stroke:Family History of CVA or Stroke:Tobacco abuseAnxiety - In-person encounter Office Visit Carey Carlin MD [facility] VITAL SIGNS Date Observation Value Provider Body Mass Index (Ratio) 21.44 kg/m2 Jeremy Carlin MD blood pressure, diastolic 73 mm[Hg] Ke rri Rosemary blood pressure, systolic 106 mm[Hg] Elda ri Juanuehermilaelder blood pressure, cuff size regular Ke rri Ruthieelder oxygen saturation, oximetry 99 % Lashanda Riley respiratory rate E&M 18 /min Lashanda barbozaelddarcy pulse rate 81 /min Lashanda Mcdaniel lder weight E&M 141 [lb_av] Lashanda Mcdaniel lder height E&M 68 [in_i] Lashanda Mcdaniel er Body Mass Index (Ratio) 21.74 kg/m2 Jeremy Carlin MD blood pressure, cuff size regular Ke rri Jessaer blood pressure, diastolic 76 mm[Hg] Ke rri Ruthieelder blood pressure, systolic 112 mm[Hg] Elda Riley oxygen saturation, oximetry 96 % Lashanda Riley respiratory rate E&M 18 /min Lashanda barbozaelddarcy pulse rate 80 /min Lashanda Hendrickse lder weight E&M 143 [lb_av] Lashanda Mcdaniel lder height E&M 68 [in_i] Lashanda Mcdaniel [facility] ALLERGIES Allergy Name Onset Date Reaction Criticality Status MORPHINE Low Criticality active RESULTS Date Observation Value Provider Reference Range Interpretation Location prothrombin time (patient) 10.5 s [facility] 9.0-11.5 Normal international normalized ratio (INR) 0.9 [facility] Normal basophils as percent of blood leukocytes 0.7 % [facility] Normal eosinophils as percent of blood leukocytes 1.6 % [facility] Normal monocyte count, blood 5.7 % [facility] Normal lymphocyte count, blood 33.8 % [facility] Normal neutrophils as percent of blood leukocytes 58.2 % [facility] Normal basophils, absolute, manual 49 cells/mcL [facility] 0-200 Normal eosinophils, absolute, manual 112 cells/mcL [facility] 15-500 Normal monocytes, absolute, manual 399 cells/mcL [facility] 200-950 Normal lymphocytes, absolute 2366 CELLS/UL [facility] 850-3900 Normal Absolute Neutrophil count 4074 cells/mcL [facility] 1471-4195 Normal mean platelet volume 10.7 fL [facility] 7.5-12.5 Normal platelet count 249 THOUSAND/UL [facility] 140-400 Normal red blood cell distribution width 12.2 % [facility] 11.0-15.0 Normal mean corpuscular hemoglobin concentration, RBC 33.9 G/DL [facility] 32.0-36.0 Normal mean corpuscular hemoglobin, RBC 31.9 pg [facility] 27.0-33.0 Normal mean corpuscular volume, RBC 94.3 fL [facility] 80.0-100.0 Normal hematocrit, blood 38.1 % [facility] 35.0-45.0 Normal hemoglobin electrophoresis, blood 12.9 [facility] 11.7-15.5 Normal erythrocyte (RBC) count 4.04 MILLION/UL [facility] 3.80-5.10 Normal leukocyte (white blood cells) count, blood 7.0 THOUSAND/UL [facility] 3.8-10.8 Normal calcium, serum 9.6 mg/dL [facility] 8.6-10.4 Normal carbon dioxide, venous blood 26 mmol/L [facility] 20-31 Normal chloride, serum 105 mmol/L [facility] 98-110 Normal potassium, serum 4.4 mmol/L [facility] 3.5-5.3 Normal sodium, serum 139 mmol/L [facility] 135-146 Normal urea nitrogen/creatini ne ratio, serum NOT APPLICABLE (calc) [facility] 6-22 Estimated Glomerular Filtration Rate (calc) 119 mL/min/{1.73_m 2} [facility] > OR = 60 Normal creatinine, serum 0.66 mg/dL [facility] 0.50-1.05 Normal urea nitrogen, blood 14 mg/dL [facility] 7-25 Normal blood glucose, random 84 mg/dL [facility] 65-99 Normal cholesterol, non-HDL, total 138 MG/DL (CALC) [facility] <130 High cholesterol/HDL ratio, serum, percent 3.4 (calc) [facility] <5.0 Normal LDL cholesterol, serum 118 MG/DL (CALC) [facility] High triglyceride, serum, fasting 101 mg/dL [facility] <150 Normal HDL cholesterol, serum 57 mg/dL [facility] >50 Normal cholesterol, serum 195 mg/dL [facility] <200 Normal HISTORY OF MEDICATION USE Medication Status Instructions Dates Provider Indications Com ments CLONAZEPAM 0.25 MG ORAL TABLET DISINTEGRATING active One tablet as needed for anxiety and palpitations. 9 Carey Carlin MD ATORVASTATIN CALCIUM 20 MG ORAL TABLET active po daily 3 Carey Carlin MD ASPIRIN ADULT LOW DOSE 81 MG ORAL TABLET DELAYED RELEASE active One Tab By Mouth Daily 3 Carey Carlin MD SOCIAL HISTORY Date Observation Value Provider number of grandchildren Carey Carlin MD T walt Carlin MD social history reviewed E&M revi ewed - no changes required Carey Carlin MD number of years as a smoker 30 a Lashanda Riley smoking history, tot al pack/day /21 ppd Lashanda Riley cigarette use yes Lashanda Ruthie helton smoking status Current every day smoker K edson Riley social history reviewed E&M revi ewed - no changes required Carey Carlin MD number of years as a smoker 30 a Lashanda Fiorellacandice smoking history, tot al pack/day 1 ppd Lashanda Riley cigarette use yes Lashanda helton smoking status Current every day smoker Camila Riley FAMILY HISTORY Family Member Condition Mother Negative FH of Coron phong Artery Disease Full Brother Family History of CV A or Stroke: Full Sister Family History of CV A or Stroke: Father Family History of CV A or Stroke: INSURANCE PROVIDERS Payer name Policy type / Coverage type [employer] red republican ID [facility] [id number] ADVANCE DIRECTIVES Name Date DISCUSSED - NO DECISION MADE TREATMENT PLAN Date Name Performer Cardiology Hospital Follow up To annika Carlin MD [facility] Follow up :O n atorvastatin. Carey Carlin MD [facility] Follow up :Cath shows mild nonobstructive CAD. Carey Carlin MD Cardiology New Patient Carey guerra MD Cardiology New Patient Carey guerra MD Cardiology New Patie nt : 1 . Abnormal Jai protocol exercise tolerance test showing ST segment depression with exercise. 2 . Normal left ventricular size and reduced systolic function with a calculated ejection fraction of 44%. 3 . Myocardial scintigraphy is normal without evidence for previous myocardial infarction or reversible ischemia. LV dysfunction concerning for 3 vsl disease will schedule cath Carey Carlin MD HISTORY OF PROCEDURES Procedure Date Procedure Name Provider Procedure Notes S tatus SNOMED-CT: 000336000 472072 Current Medications Documented Carey Carlin MD completed SNOMED-CT: 251012916 Smoking Cessation Counseling Carey Carlin MD completed SNOMED-CT: 02845643 Physical Exam, Performed: Pulse Exam of Foot Carey Carlin MD completed SNOMED-CT: 633947164 380978 Current Medications Documented Carey Carlin MD completed Stress EKG Kris Montanez MD completed Cardiolite, 2 units Kian Alejo MD completed SPECT Images Spike Sandoval MD compl eted
--- OUTSIDE RECORDS SUMMARY | 2025-01-01 10:08 | XMS_ITS | Data Portability ---
Author Organization [facility] [email or web address], Main Office Address [address] [place] [address] Assessment No assessment recorded. Plan of Treatment Reminders Order Date Submit Date Provider Last Modified By Organization Details Last Modified Time Details Appointments None recorded . Lab CMP, serum or plasma 023 05/25/20 23 [place] [address] [address] [facility], [address], [place], [address], 4 08:35:06 lipid panel, serum 023 05/25/20 23 [place] [address] [address] [facility], [address], [place], [address], 4 08:35:06 Referral None recorded . Procedures None recorded . Surgeries None recorded . Imaging None recorded . Medication Orders None recorded . Patient TargetsNo targets recorded. Patient InstructionsNo instructions recorded. Reason for Referral None Reported. Results Created Date Observation Date Name Description Value Unit Range Abnormal Flag Note LastModifiedBy Organization Detail LastModifiedTime 05/26/20 21 XR, hip + pelvi s, bilat eral No observ ation record ed. [id number] [id number] [place] [address], [place], [address], 11/22/2022 18:36:55 12/09/19 23 12/08/2022 colon oscop y scree alexus (PROC ) No observ ation record ed. [email or web address] Not Available 2022 18:25:16 01/09/20 23 11/16/2022 MAMMO , scree alexus, digit al, bilat eral No observ ation record ed. [email or web address] Not Available 2022 17:58:26 Result Notes None recorded. Problems Name Problem SNOMED Code Status Onset Date Resolution Date Notes Provider Name and Address Organization Details Recorded Time Acute sinusitis 63911845 Active 2021 Not Available [facility] 3 18:35:51 Left flank pain 048154255 Active 2021 Not Available [facility] 3 18:35:51 Lower urinary tract symptoms 010946065 Active 2022 Not Available [facility] 3 18:35:51 Hip pain 75956629 Active 2020 Not Available [facility] 3 18:35:51 Hyperlipid emia 01790329 Active 2019 Not Available [facility] 3 18:35:51 Acute urinary tract infection 935990402 Active 2022 BENJAMÍN Willingham [address], [place], [address] , [employer] 3 12:12:08 Acute pharyngiti s 370010452 Active 2022 BENJAMÍN Willingham [address], [address], [place], [address] , [employer] 3 13:20:04 Osteoarthr itis of right hip joint 1885871327873 07 Active 2022 BENJAMÍN Willingham [address], [address], [place], [address] , [employer] 3 09:30:44 Problem Notes None recorded. Procedures Surgical History Date Name Laterality Status Provider Name and Address Organization Details Recorded Time 10/25/19 17 Hysterectomy completed Not Available [facility] 023 18:35:03 07/26/20 15 Date of Last Pap Smear completed Not Available [facility] 11/22/2022 18:35:02 09/24/19 13 [employer] Surgery completed Not Available [facility] 11/23/19 23 18:35:03 06/24/20 07 Breast Implants completed Not Available [facility] 030 09/2022 18:35:03 11/17/19 03 section completed Not Available [facility] 09/2022 18:35:03 12/01/19 01 section completed Not Available [facility] 09/2022 18:35:03 05/04/19 93 section completed Not Available [facility] 09/2022 18:35:03 04/10/19 85 section completed Not Available [facility] 09/2022 18:35:03 09/24/18 79 Appendectomy completed Not Available [facility] 023 18:35:03 procedure on urinary bladder completed Not Available [facility] 11/22/2022 18:35:03 Imaging Results Imaging Date Name Status LastModified by Organiz ation Details LastModified Time 05/26/2021 XR, hip + pelvis, bilateral completed [id number] [facility] [place] [address], [place], [address], 11/22/2022 18:36:55 12/08/2022 colonoscopy screening (PROC) completed Information not available 12/11/2022 18:25:16 11/16/2022 MAMMO, screening, digital, bilateral completed Information not available 01/08/2023 17:58:26 Procedure Notes None recorded. Medical Equipment None Reported. Allergies Allergen ID Allergen Name Allergen Category Reaction Reaction Severity Criticality Documentation Date Start Date Code Code System Note Provider Name and Address Organization Details Recorded Time 04593 morphine medicatio n rash Not available Not available 11/22/2022 7052 RxNorm Not Available [facility] 18:36:52 61216 amoxicill in medicatio n Not available Not available Not available 03/22/2023 723 RxNorm MARCELA Matute, [place] - [place] [facility] 09:11:44 Medications Name Sig Start Date Stop Date Status Note LastModified by Organization Details LastModified Time prednisone 10 mg tablet TAKE 1 TABLET BY MOUTH THREE TIMES DAILY FOR 3 DAYS THEN 1 TAB TWICE DAILY FOR 2 DAYS THEN 1 TAB ONCE DAILY FOR 1 DAY 08/25 completed Not Available Not Available Not Available atorvastati n 20 mg tablet 08/23 completed Not Available Not Available Not Available naproxen 375 mg tablet TAKE 1 TABLET BY MOUTH TWICE DAILY 03/22 completed Not Available Not Available Not Available triamcinolo ne acetonide 0.5 % topical cream APPLY A THIN LAYER TO THE AFFECTED AREA(S) OF FEET BY TOPICAL ROUTE 2 TIMES PER DAY NEEDED. active Not Available Not Available No t Available azithromyci n 250 mg tablet TAKE 2 TABLETS BY MOUTH ON DAY 1, AND THEN TAKE 1 TABLET BY MOUTH ONCE A DAY ON DAY 2 THROUGH DAY 5 03/21 completed Not Available Not Available Not Available valacyclovi r 1 gram tablet TAKE 1 TABLET BY MOUTH THREE TIMES DAILY FOR 7 DAYS 10/09 completed Not Available Not Available Not Available hydrocodone 5 mg-acetamin ophen 325 mg tablet 06/15 completed Not Available Not Available Not Available prednisone 20 mg tablet take 3 tabs po daily x 2 days, thentake 2 tabs po daily x 2 days, thentake 1 tab po daily x 2 days, thentake 1/2 tab po daily x 2 days active Not Available Not Available No t Available Diflucan 150 mg tablet Take 1 tablet every day by oral route for 1 day. 10/06 completed Not Available Not Available Not Available penicillin V potassium 500 mg tablet 07/13 completed Not Available Not Available Not Available acetaminoph en 300 mg-codeine 30 mg tablet as directed 06/15 completed Not Available Not Available Not Available ciprofloxac in 500 mg tablet TAKE 1 TABLET BY MOUTH EVERY 12 HOURS FOR 7 DAYS 01/08 completed Not Available Not Available Not Available prednisone 10 mg tablets in a dose pack Take 1 tab by mouth, 3 times a day for 3 daysTake 1 tab by mouth 2 times a day for 2 daysTake 1 tab by mouth once a day for 1 day 08/25 completed Not Available Not Available Not Available oxycodone-a cetaminophe n 5 mg-325 mg tablet 06/15 completed Not Available Not Available Not Available alprazolam 0.5 mg tablet 06/15 completed Not Available Not Available Not Available pantoprazol e 40 mg tablet,francesco yed release Take 1 tablet every day by oral route for 30 days. 06/15 completed Not Available Not Available Not Available ondansetron 4 mg disintegrat ing tablet DISSOLVE 1 TABLET IN MOUTH EVERY 8 HOURS NEEDED FOR NAUSEA AND FOR VOMITING 03/22 completed Not Available Not Available Not Available doxycycline hyclate 100 mg tablet TAKE 1 TABLET BY MOUTH TWICE DAILY 03/22 completed Not Available Not Available Not Available amoxicillin 875 mg-potassiu m clavulanate 125 mg tablet TAKE 1 TABLET BY MOUTH EVERY 12 HOURS 03/22 completed Not Available Not Available Not Available clonazepam 0.25 mg disintegrat ing tablet Place 1 tablet twice a day by transling ual route as needed. 10/07 completed Not Available Not Available Not Available rosuvastati n 10 mg tablet TAKE 1 TABLET BY MOUTH ONCE DAILY IN THE EVENING active Not Available Not Available No t Available nitrofurant oin monohydrate /macrocryst als 100 mg capsule TAKE 1 CAPSULE BY MOUTH EVERY 12 HOURS 01/08 completed Not Available Not Available Not Available Chantix Continuing Month Box 1 mg tablet Take 1 tablet twice a day by oral route as directed. active Not Available Not Available No t Available Chantix Starting Month Box 0.5 mg (11)-1 mg (42) tablets in dose pack take as directed for the 1st month. active Not Available Not Available No t Available Vitals Date Recorded Body mass index (BMI) Body height Body weight Provider Name and Address Organization Details Last Updated DateTime 05/26/2021 24.3 kg/m2 170.18 cm 91788.82 g Not Available [facility] 11/22/2022 18:35:10 Date Recorded Body mass index (BMI) Body height Oxygen saturation Oxygen saturation in Arterial blood by Pulse oximetry Heart rate Body temperature Body weight Systolic blood pressure Diastolic blood pressure Provider Name and Address Organization Details Last Updated DateTime 24.1 kg/m2 170.18 cm 97 % 97 % 86 /min 97.8 [degF] 64165.7 9 g 110 mm[Hg] 70 mm[Hg] Not Available [facility] 18:35:07 Date Recorded Body mass index (BMI) Body height Oxygen saturation Oxygen saturation in Arterial blood by Pulse oximetry Heart rate Respiratory rate Body temperature Body weight Systolic blood pressure Diastolic blood pressure Provider Name and Address Organization Details Last Updated DateTime 3 24.1 kg/m2 170.18 cm 98 % 98 % 77 /min 16 /min 97.3 [degF] 14876.2 2 g 120 mm[Hg] 80 mm[Hg] Not Available [facility] 3 18:35:08 Date Recorded Body height Oxygen saturation Oxygen saturation in Arterial blood by Pulse oximetry Heart rate Respiratory rate Body temperature Systolic blood pressure Diastolic blood pressure Provider Name and Address Organization Details Last Updated DateTime 2 170.18 cm 96 % 96 % 91 /min 16 /min 97.4 [degF] 110 mm[Hg] 70 mm[Hg] Not Available [facility] 3 18:35:08 Date Recorded Body height Body temperature Body mass index (BMI) Body weight Respiratory rate Oxygen saturation Oxygen saturation in Arterial blood by Pulse oximetry Heart rate Systolic blood pressure Diastolic blood pressure Provider Name and Address Organization Details Last Updated DateTime 3 170.18 cm 98.1 [degF] 23.3 kg/m2 04766.2 6 g 16 /min 98 % 98 % 81 /min 122 mm[Hg] 80 mm[Hg] MARCELA Matute [place] - [facility] [place] [employer] [facility] 3 09:13:30 Social History Question Answer Notes LastModified by Organizat ion Details LastModified Time Tobacco Smoking Status Former Smoker Not Available [facility] 11/22/2022 18:34:51 Do You Have An Advance Directive? No [id number].[id number] Information not available 11/22/2022 What Is Your Level Of Alcohol Consumption? Occasional MIGRATION.669399 6704 Information not available 11/22/2022 Do You Wear A Helmet When Biking? No MIGRATION.459403 1317 Information not available 11/22/2022 Is Blood Transfusion Acceptable In An Emergency? No MIGRATION.609657 8454 Information not available 11/22/2022 What Is Your Level Of Caffeine Consumption? Moderate MIGRATION.477170 0663 Information not available 11/22/2022 In The 14 Days Before Symptom Onset, Have You Had Close Contact With A Laboratory-confir med COVID-19 While That Case Was Ill? No MIGRATION.315040 6746 Information not available 11/22/2022 In The 14 Days Before Symptom Onset, Have You Had Close Contact With A Person Who Is Under Investigation For COVID-19 While That Person Was Ill? No MIGRATION.580377 7827 Information not available 11/22/2022 What Type Of Diet Are You Following? REGULAR MIGRATION.171648 9003 Information not available 11/22/2022 What Is The Highest Grade Or Level Of School You Have Completed Or The Highest Degree You Have Received? [id number] MIGRATION.327773 1774 Information not available 11/22/2022 Do You Have An Electrostatic Air Filter? No MIGRATION.151538 5784 Information not available 11/22/2022 Have You Been Exposed To Chemicals Or Toxins? No MIGRATION.277149 1576 Information not available 11/22/2022 Have There Been Any Changes To Your Family Or Social Situation? No MIGRATION.947365 4618 Information not available 11/22/2022 When Did You Quit Smoking? 1-5yearssincel astcigarette MIGRATION.554183 9311 Information not available 11/22/2022 Are There Any Guns Present In Your Home? No MIGRATION.143508 6768 Information not available 11/22/2022 Do You Use Insect Repellent Routinely? Yes MIGRATION.531447 4096 Information not available 11/22/2022 Do You Have A Medical Power Of Hearing Aid Dispenser? No MIGRATION.745767 4322 Information not available 11/22/2022 Do You Have Moisture Problems In Your Home? No MIGRATION.081372 2654 Information not available 11/22/2022 What Is Your Current Pack Years? 30ormorepackye ars MIGRATION.303926 6338 Information not available 11/22/2022 Have You Ever Been Counseled For Unhealthy Alcohol Use? No MIGRATION.610202 3710 Information not available 11/22/2022 What Is Your Relationship Status? MIGRATION.468453 3415 Information not available 11/22/2022 Do You Use Your Seat Belt Or Car Seat Routinely? Yes MIGRATION.104470 5626 Information not available 11/22/2022 Do You Have Smoke And Carbon Monoxide Detectors In Your Home? Yes MIGRATION.446285 2333 Information not available 11/22/2022 At What Age Did You Start Smoking Tobacco? 19 MIGRATION.163746 1990 Information not available 11/22/2022 Are You Passively Exposed To Smoke? No MIGRATION.745550 9168 Information not available 11/22/2022 Are There Any Smokers In Your House? No MIGRATION.851453 5659 Information not available 11/22/2022 Do You Participate In Social Media? Yes MIGRATION.677919 0724 Information not available 11/22/2022 Do You Feel Stressed (tense, Restless, Nervous, Or Anxious, Or Unable To Sleep At Night)? [id number] MIGRATION.055171 0697 Information not available 11/22/2022 Do You Use Any Illicit Or Recreational Drugs? Yes [email or web address] Information not available 03/22/2023 Do You Use Sunscreen Routinely? Yes MIGRATION.561055 0111 Information not available 11/22/2022 Has Tobacco Cessation Counseling Been Provided? No MIGRATION.771504 5876 Information not available 11/22/2022 Have You Recently Traveled Abroad? No MIGRATION.605284 6515 Information not available 11/22/2022 Are You Currently In School? No MIGRATION.082205 3326 Information not available 11/22/2022 Do You Have Any Dietary Restrictions? No MIGRATION.137625 2504 Information not available 11/22/2022 Do You Or Have You Ever Used Any Other Forms Of Tobacco Or Nicotine? No MIGRATION.958486 2758 Information not available 11/22/2022 Sex: Unknown Functional Status Question Answer Note LastModified by Organizat ion Details LastModified Time What is your exercise level? Occasional MIGRATION.[id number] 26 Information not available 11/22/2022 Mental Status None recorded. Family History Relationship Description Onset Age of this Age Resolved Age Notes LastModified by Organization Details LastModified Time Sister Family history of stroke [id number] Not available 11/22/2022 18:35:03 Father Family history of malignant neoplasm MIGRATION.518 [id number] Not available 11/22/2022 18:35:03 Father Hypertensive disorder MIGRATION.889 [id number] Not available 11/22/2022 18:35:03 Father Heart disease MIGRATION.874 [id number] Not available 11/22/2022 18:35:03 Mother Hypertensive disorder MIGRATION.415 [id number] Not available 11/22/2022 18:35:03 Mother Rheumatoid arthritis poly MIGRATION.257 [id number] Not available 11/22/2022 18:35:03 Brother Family history of stroke MIGRATION.229 [id number] Not available 11/22/2022 18:35:03 Medical History Condition Response URINARY/BLADDER/KIDNEY PROBLEMS Y ANXIETY DISORDER Y Gynecological History Statement/Question Response Abnormal Pap N Date of Last Mammogram 07/25/2015 Sexually Active? Y Menses Monthly N Hysterectomy? Y Date of Last Pap Smear 07/26/2015 Current Control Method Hysterectom y Obstetrics History GPAL:G 6 P 0 0 0 4 Type Value Living 4 Total 6 Immunizations Vaccine Type Date Status Note Provider Nam e and Address Organization Details Recorded Time Influenza, split virus, quadrivalent, preservative 2 completed Not Available [facility] 11/22/2022 18:36:49 Past Encounters Encounter ID Performer Location Encounter Start Date Encounter Closed Date Diagnosis/Indication Diagnosis SNOMED-CT Code Diagnosis ICD10 Code Diagnosis Note [id number] [facility] [place] [address] [place] [address] 05/26/2021 00:00:00 05/26/2021 11:13:49 [id number] [facility] [place] [address] [place] [address] 08/25/2021 00:00:00 09/20/2021 23:11:03 [id number] [facility] [place] [address] [place] [address] 06/23/2022 00:00:00 06/23/2022 16:35:35 [id number] [facility] [place] [address] [place] [address] 10/09/2022 00:00:00 10/15/2022 16:08:38 [id number] BENJAMÍN Willingham [facility] [place] [address] [place] [address] 03/22/2023 09:07:41 03/22/2023 09:38:38 Hyperlipidemia 88164904 E78.5 pt is stable on statin therapy and repeat labs are due in may. Osteoarthr itis of right hip joint 3359739368 49054 M16.11 cleared for right MARGRET surgery. preop labs reviewed with patient on her my chart phil. Long-term drug therapy 585341239 Z79.899 Health Concerns Section Related Observation LastModified by Organization Detai ls LastModified Time None Recorded Concern Status LastModified by Organization Details LastModified Time None Recorded Advance Directives Directive N: Payers Encounter Date Sequence Insurance Name Policy Number Policy Mckeon Covered Member ID Mckeon Member ID Guarantor Name 03/22/2023 1 [place] [id number] Kirill Solomon [id number] Aiyana Solomon Notes Date Note Type Note Provider Name and Address Organization Details Recorded Time 1 text/html Sinusitis/AllergyReported bypatient.Location:maxilla ry; frontal Quality:aching;dull;conges sherly Severity:no pain; no frequent breathing through the mouth; no nosebleeds (epistaxis); no snoring;limits daily activities Duration:long standing Onset/Timing:chronic Context:no recent upper respiratory infection; no recent sick contacts; not worse with seasonal allergen exposure; not worse around animals; not worse around pollen; not worse around dust; not worse around molds; not worse with environmental exposure; not worse when mowing grass; not worse with certain foods; not worse with odors Aggravating factors:not worse with change in medication; not worse during an upper respiratory infection (a cold); not worse when allergies are active Associated Symptoms:no fever; no weight loss; no cough; no hemoptysis; no hematemesis; no difficulty breathing; no feeling of strangulation; no nausea or vomiting; not constantly clearing the throat; no nasal passage blockage; no nasal itching; no eye itching; no pain behind the eyes; no skin itching; no dental pain; no muscle aches;nasal discharge from both nostrils;headache cheek;facial pain bilaterally;sinus pain forehead;sore throat;thick phlegm in throat;nasal discharge;decreased sense of smell;ear fullness Risk Factors:no current smoking or tobacco use; no history of smoking; no increased stress; no family history of allergies; no history of nasal trauma; no allergy to aspirin; no history of nasal polyps; no history of asthma; no chemotherapy; no DM; no HIV; no immunodeficiency Not Available [place] [facility] 09/20/2021 23:11:03 2 text/html Back Pain - GeneralReported bypatient.Location:pain is not radiating; pain free; Lt side of mid back Quality:sharp Severity:improving (no pain today);pain level 5/10;moderate (5-7) Duration:intermittent; present for less than a month Timing:better; actual date: (5 days ago) Context:history of kidney issues. Alleviating Factors:nothing, just goes away in time Aggravating Factors:unknown Associated Symptoms:no fever; no weak limbs; no tingling; no numbness of the legs/feet; no incontinence; no shortness of breath Not Available [employer] 06/23/2022 16:35:35 3 text/html HyperlipidemiaReported bypatient.Duration:chronic Control:usually well controlled Compliance:compliant; compliant with diet;does not exercise Complications:no coronary artery disease; no peripheral artery disease; no cardiovascular disease Risk Factors:smoking(vape) Not Available [employer] 10/15/2022 16:08:38 3 text/html Generic HPI TemplateReported bypatient.Notes:Pt is here for surgery clearance for R hip surgery on 04/04/23. BENJAMÍN Willingham [address] [address], [place], [address], [employer] 03/22/2023 17:02:23 OBGyn Episode No OBEpisode recorded.
--- OUTSIDE RECORDS SUMMARY | 2025-01-01 10:09 | XMS_ITS | Clinical Summary ---
Author Organization [facility] [address] Address [address] [place] [address] Care Team Providers Care Home Office Representative Name Role Phone GeetatejinderAdriana Primary Care Pr ovider Kimo Barlow MD Unavailable [phone] Allergies Active Allergy Reactions Criticality Noted Date Comments Amoxicillin Vomiting Low 03/08/2023 And diarrhea Morphine Itching Low 11/10/2019 Medications rosuvastatin (CRESTOR) 10 mg tabletIndications: Hyperlipidemia LDL goal <70 Take 1 tablet (10 mg total) by mouth daily 30 tablet 11 11/10/19 20 Active ascorbic acid 500 mg tablet,chewable Take 1 tablet/chew tab (500 mg total) by mouth daily 42 tablet/chew tab 04/04/20 23 Active celecoxib (CeleBREX) 200 mg capsule Take 1 capsule (200 mg total) by mouth 2 (two) times a day 84 capsule 04/04/20 23 Active aspirin (Ecotrin) 325 mg enteric coated tablet Take 1 tablet (325 mg total) by mouth daily 42 tablet 04/04/20 23 Active senna-docusate (PERICOLACE) 8.6-50 mg Take 1 tablet by mouth daily 30 tablet 2 04/04/20 23 Active ondansetron ODT (ZOFRAN-ODT) 4 mg disintegrating tablet Take 1 tablet (4 mg total) by mouth every 8 (eight) hours as needed for nausea or vomiting 20 tablet 1 04/04/20 23 Active triamcinolone (KENALOG) 0.5 % cream APPLY A THIN LAYER TO THE AFFECTED AREA(S) OF FEET BY TOPICAL ROUTE 2 TIMES PER DAY NEEDED. Active oxyCODONE-acetamin ophen (PERCOCET) 5-325 mg per tabletIndications: Pain Take 1 tablet by mouth every 4 (four) hours as needed for pain 40 tablet 05/09/20 23 Active clindamycin (CLEOCIN) 300 mg capsule Take 1 capsule (300 mg total) by mouth continuously Take 2 capsules PO one hour prior to dental procedure and 1 capsule PO six hours after procedure 3 capsule 05/15/20 23 Active Active Problems Problem Noted Date Diagnosed Date Primary osteoarthritis of right hip 03/20/2023 Acute sinusitis 12/29/2021 Anxiety 11/10/2019 Hyperlipidemia LDL goal <70 11/10/2019 Coronary artery disease invo lving [place] coronary artery of [place] heart without angina pectoris 11/10/2019 Cardiomyopathy 11/10/2019 Hypersomnolence 11/10/2019 Tobacco dependence syndrome 09/11/2017 Chest pain, unspecified 08/01/2017 Dizziness 08/01/2017 Palpitations 08/01/2017 Benign neoplasm of skin of trunk 06/26/2011 Benign neoplasm of skin of lower extremity 06/26 Surgical History Surgery Date Site/Laterality Comments SECTION x4 HYSTERECTOMY BLADDER SURGERY FLUORO GUIDED INJECTION HIP RIGHT 01/10/2022 Right BREAST SURGERY breast augmentation OVARIAN CYST SURGERY Medical History Medical History Date Comments Anxiety Hyperlipidemia Family History Medical History Relation Name Comments Cancer Father Gout Father Stroke Father Arthritis Mother Relation Name Status Comments Brother Alive Father Alive Mother Alive Sister Alive Social History Tobacco Use Types Packs/Day Years Used Date Smoking Tobacco: Every Day E-cigarettes Smokeless Tobacco: Never Alcohol Use Standard Drinks/Week Comments Yes 6 (1 standard drink = 0.6 oz pur e alcohol) AUDIT-C Answer Date Recorded Q1: How often do you have a drink containing alc ohol? Monthly or less 04/04/2023 Q2: How many drinks containi ng alcohol do you have on a typical day when you are drinking? 1 or 2 04/04/2023 Frequency of Binge Drinking Not on file 03/24 PHQ-2 Answer Date Recorded PHQ-2 Total Score (If total score is 3 or more points, staff should administer the PHQ-9) 0 04/04/2023 Personal Safety Answer Date Recorded Have you ever been in or are you currently in a harmful physical or emotional relationship or is someone making you feel afraid or unsafe? 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 Obstetrics History Last Filed Vital Signs Vital Sign Reading Time Taken Comments Blood Pressure 109/82 05/15/2023 9:00 AM CDT Pulse 90 05/15/2023 9:00 AM CDT Temperature 37.4 C (99.3 F) 04/05/2023 6:12 PM CDT Respiratory Rate 20 04/05/2023 6:12 PM CDT Oxygen Saturation 97% 04/05/2023 6:12 PM CDT Inhaled Oxygen Concentration - - Weight 67.1 kg (148 lb) 05/15/2023 9:00 AM CDT Height 170.2 cm (5' 7 ) 05/15/2023 9:00 AM CDT Body Mass Index 23.18 05/15/2023 9:00 AM CDT Plan of Treatment Health Maintenance Due Date Last Done Comments Breast Cancer Screening-Mammogram 1966 Colon Cancer Screening-Colonoscopy 1966 Hepatitis C Screening 1966 DTaP/Tdap/Td Vaccine (1 - Tdap) 1977 Hepatitis B Screening 1984 Regular Well Visit/Exam 18-64 1984 Pneumococcal vaccine <65 (1 of 2 - PCV) 1985 Zoster Vaccine (1 of 2) 2016 Depression Screening 03/20/2024 03/20/2023 Covid-19 Vaccine (2 - season) 05/25/202405/2021 Influenza Vaccine (#1) 2024 07/05/2022 Medical Devices Implanted Type Area Mobile Mechanic Device Identifier Shelf Expiration Date Model / Serial / Lot [employer] [place] 54mm 36mm Hip Neutral Liner Acetabular Altrx Sterile Latex Free [id number] - [id number] Implanted:Qty: 1 on 04/04/2023 by Kimo Barlow MD at [facility] Right: Hip [employer] 02/22/2028 [id number] / / [id number] [employer] [place] 54mm Sector Hip Shell Acetabular Gription Sterile Latex Free [id number] - [id number] Implanted:Qty: 1 on 04/04/2023 by Kimo Barlow MD at [facility] Right: Hip [employer] 02/21/2033 [id number] / / [id number] [employer] Actis L107 Mm Collar Hip 6 High Offset Stem Femoral [id number] - [id number] Implanted:Qty: 1 on 04/04/2023 by Kimo Barlow MD at [facility] Right: Hip [employer] 09/23/2032 [id number] / / [id number] [employer] Articul/Robin 36mm Cementless Hip +1.5mm 09/06 Taper Head Femoral Latex Free [id number] - [id number] Implanted:Qty: 1 on 04/04/2023 by Kimo Barlow MD at [facility] Right: Hip [employer] 01/22/2028 [id number] / / [id number] Insurance [facility] [place] For more information, please contact: [phone] * Full Code (Latest Code Status on File) Date Activated Date Inactivated Comments 04/04/2023 11:52 AM 04/05/2023 11:42 PM Care Teams Home Office Representative Relationship Specialty Start Date End Date Adriana Cedeño PA PCP - General Physician Welding Foreman 10/31/19 Kimo Barlow MD [address] [place] [address] [place] [address] Surgeon Orthopedic Surgery 04/04/23
--- OUTSIDE RECORDS SUMMARY | 2025-01-01 10:09 | XMS_ITS | Referral Summary ---
Author Organization [facility] [address] Address [address] [place] [address] Care Team Providers Care Aircraft Servicer Name Role Phone GeetatejinderAdriana Primary Care Pr ovider Kimo Barlow MD Unavailable [phone] Allergies Active Allergy Reactions Criticality Noted Date [...] <70 11/10/2019 Coronary artery disease invo lving [place] coronary artery of [place] heart without angina pectoris 11/10/2019 Cardiomyopathy 11/10/2019 Hypersomnolence 11/10/2019 Tobacco dependence syndrome 09/11/2017 Chest pain, unspecified 08/01/2017 Dizziness 08/01/2017 Palpitations 08/01/2017 Benign neoplasm of skin of trunk 06/26/2011 Benign neoplasm of skin of lower extremity 06/26 Social History Tobacco Use Types Packs/Day Years [...] on file 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 Gender Identity Not on file Sexual Orientation Not on file 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 Last Filed Vital Signs Vital Sign Reading [...] 05/15/2023 9:00 AM CDT Plan of Treatment Not on file Medical Devices Implanted Type Area Bench Machine Operator Device Identifier Shelf Expiration Date Model / Serial / Lot [employer] [place] 54mm 36mm Hip Neutral Liner Acetabular Altrx Sterile Latex Free [id number] - [id number] Implanted:Qty: 1 on 04/04/2023 by Kimo Barlow MD at [facility] Right: Hip [employer] 02/22/2028 [id number] / / [id number] [employer] [place] 54mm Sector Hip Shell Acetabular Gription Sterile Latex Free [id number] - [id number] Implanted:Qty: 1 on 04/04/2023 by Kimo Barlow MD at [facility] Right: Hip [employer] 02/21/2033 [id number] / / [id number] [employer] Actis L107 Mm Collar Hip 6 High Offset Stem Femoral [id number] - [id number] Implanted:Qty: 1 on 04/04/2023 by Kimo Barlow MD at [facility] Right: Hip [employer] 09/23/2032 [id number] / / [id number] [employer] Articul/Robin 36mm Cementless Hip +1.5mm 09/06 Taper Head Femoral Latex Free [id number] - [id number] Implanted:Qty: 1 on 04/04/2023 by Kimo Barlow MD at [facility] Right: Hip [employer] 01/22/2028 [id number] / / [id number] [place] Sub[place] Plan / Payer ( fective 2021-Present) Name:Aiyana Calderon Relation to Subscriber:Spouse Name:HOUSTON CALDERON Date of :1968 (Home) Address: [address] [place] [address] Payer ID:[id number] (NAIC) Type: OTHER Address: [place] [id number] [facility] Advance Directives For more information, please contact: [phone] * Full Code (Latest Code Status on File) Date Activated Date Inactivated Comments 04/04/2023 11:52 AM 04/05/2023 11:42 PM Care Teams Aircraft Servicer Relationship Specialty Start Date End Date Adriana Cedeño PA PCP - General Physician Farm Equipment Service Technician 10/31/19 Kimo Barlow MD [address] [place] [address] [place] [address] Surgeon Orthopedic Surgery 04/04/23
== END 2025-01-01 09:40 | disposition home or self-care (01) ==
PROVIDERS: PCP Physician Assistant; Visit Provider Physician Assistant
DX: Z12.31 Encounter for screening mammogram for malignant neoplasm of breast (principal)
CPT/HCPCS: 77063; 77067

== ENCOUNTER 2025-02-03 11:35 | Outpatient (CLI) | payer BC, SELFPAY ==
--- NOTE | ~2025-02-03 | XR_ITS ---
Supine and upright views of the abdomen Clinical history: Abdominal pain Findings: Bowel gas pattern is nonspecific. No evidence for obstruction or free air. No abnormal mass lesion or calcification is seen. Right hip arthroplasty in place. Impression: No significant abnormality is seen. Reviewed, dictated and finalized at [facility]. Impression: No significant abnormality is seen.
== END 2025-02-03 11:36 | disposition home or self-care (01) ==
LOC: GOSHIMG 11:36
PROVIDERS: PCP Physician Assistant; Visit Provider Physician Assistant
DX: R10.9 Unspecified abdominal pain (principal)
CPT/HCPCS: 74018